=== PATIENT | female | born 1985 | race Caucasian/White ===

== ENCOUNTER 2019-02-03 23:32 | Inpatient (IN) | payer SELFPAY ==
[~2019-02-03] VITALS: Ht 170.2 cm; Wt 66.9 kg
[2019-02-03 23:41] VITALS: Ht 170.2 cm; Wt 66.9 kg
[2019-02-04] VITALS (7 sets, daily range): BP systolic 79–106; BP diastolic 43–62
--- NOTE | 2019-02-04 00:03 | NUR ---
PT BIB PARENTS WITH C/O "MY BODY FEELS NUMB." PT CRYING AND SPEAKING IN FULL SENTENCES. PT ADMITS TO METHAMPHETAMINE USE "YESTERDAY." PT STATED, "I WAS CLEAN FOR 7 MONTHS AND IM UNDER A LOT OF STRESS." PT ALSO C/O ONE INCIDENT OF CHEST PAIN "YESTERDAY". PT DENIES ANY CHEST PAIN AT THIS TIME. PT IS AAOX4, CRYING AND COOPERATIVE, SHALLOW AND EVEN RESPIRATIONS, SKIN INTACT, WARM AND DRY. PT GOWNED AND PLACED ON FULL CM, SINUS TACHYCARDIA, MSE COMPLETED BY DR RAY. PARENTS AT THE BEDSIDE. EKG COMPLETED. AWAITING FURTHER ORDERS.
[2019-02-04 00:45] LABS: CARBON DIOXIDE 15.2 mmol/L (21-32); CREATININE SERUM 1.2 mg/dL (0.6-1.0); POTASSIUM SERUM 3.5 mmol/L (3.5-5.1)
[2019-02-04 00:49] LABS: ALBUMIN 3.7 g/dL (3.4-5.0); BILIRUBIN TOTAL 0.5 mg/dL (0.20-1.00); TOTAL PROTEIN, SERUM 6.9 g/dL (6.4-8.2)
[2019-02-04 01:16] LABS: BASOPHIL % 0.5 % (0-2); PLATELET COUNT 193 x10^3mcL (130-400); RED CELL DISTRIBUTION WIDTH 14.1 % (11.5-14.5)
--- NOTE | 2019-02-04 01:22 | NUR ---
PT MEDICATED PER MD ORDER SEE EMAR. VITAL SIGNS STABLE. RESPIRATIONS EVEN AND UNLABORED. NO ACUTE DISTRESS NOTED.
--- NOTE | 2019-02-04 01:33 | NUR ---
REPORT GIVEN TO SUDHEER FOR CONTINUATION OF CARE.
--- NOTE | 2019-02-04 02:00 | NUR ---
RECEIVED PT FROM ED VIA [facility] BY NURSE. PT AAOX4. DENIES CORONADO/DIZZINESS. TELE #6 ST W/ ELEVATED T WAVE HR 115 PER MONITOR. PT DENIES CHEST PAIN/PRESSURE. BREATHING EVEN AND UNLABORED ON RA WITH NO SOB NOTED. ABD SOFT/ROUND ACTIVE BOWEL SOUNDS. DENIES ABD PAIN/N/V. IV LAC PATENT, SL. PER PT CC NUMBNESS AND TINGLING FINGERS AND DENIES CHEST PAIN. NO EDEMA PRESENT. SKIN WARM/DRY. NO SIGNS OF DISTRESS NOTED. FAMILY AT BEDSIDE. CALL BUTTON WITHIN REACH. SAFETY PRECAUTIONS IN PLACE. WILL CONTINUE TO MONITOR.
[2019-02-04 02:53] LABS: MAGNESIUM 1.4 mg/dL (1.8-2.4); PHOSPHOROUS 1.5 mg/dL (2.5-4.9)
[2019-02-04 03:09] LABS: FREE T4 1.52 ng/dL (0.76-1.46); FREE THYROXINE INDEX 3.7 ug/dL (1.4-4.5); T4(THYROXINE) 10.1 ug/dL (4.7-13.3)
[2019-02-04 03:25] LABS: T3 TOTAL 1.65 ng/mL
--- NOTE | 2019-02-04 04:12 | NUR ---
PT RESTLESS IN BED, PULLING OUT IV AND HEART MONITOR OFF. DR SAMANO MADE AWARE. ATIVAN GIVEN PER EMAR. CALL BUTTON WITHIN REACH. SAFETY PRECAUTIONS IN PLACE. WILL CONTINUE TO MONITOR.
--- NOTE | 2019-02-04 04:38 | NUR ---
PT RESTING. BREATHING EVEN AND UNLABORED. NO SIGNS OF DISTRESS. CALL BUTTON WITHIN REACH. SAFETY PRECAUTIONS IN PLACE. WILL CONTINUE TO MONITOR.
--- NOTE | 2019-02-04 05:08 | NUR ---
PT SLEPT ON AND OFF TRHOGUHOUT THE NIGHT. PT DENIES CHEST PAIN/PRESSURE. IV PATENT, INFUSING WELL. MEDICATED PER EMAR. CALL BUTTON WITHIN REACH. SAFETY PRECAUTIONS IN PLACE. WILL CONTINUE TO MONITOR AND ENDORSE CARE TO DAY SHIFT RN.
--- NOTE | 2019-02-04 06:42 | NUR ---
DR HAMM MADE AWARE PT MG 1.4 AND PHOS 1.5 NO NEW ORDERS AT THIS TIME.
--- NOTE | 2019-02-04 07:22 | NUR ---
PT RESTING. BREATHING EVEN AND UNLABORED WITH NO SIGNS OF DISTRESS. IV PATENT AND INFUSING WELL. NO SIGNS OF DISTRESS. CALL BUTTON WITHIN REACH. SAFETY PRECAUTIONS IN PLACE. ENDORSED CARE TO DAY SHIFT RN, ALL QUESTIONS ADDRESSED.
--- NOTE | 2019-02-04 08:06 | NUR ---
RECEIVED PATIENT FROM TATI RIVERA. PATIENT CURRENTLY SLEEPING IN BED, NO SIGNS OF DISTRESS OR SOB. WILL CONTINUE TO MONITOR UNTIL PATIENT AWAKE, AND WILL SEE WHAT CARE TEAM PLANS ARE FOR TODAY.
--- NOTE | 2019-02-04 11:03 | NUR ---
PATIENT NOW AWAKE, NO COMPLAINTS AT THIS TIME. AM PO MEDICATIONS ADMINISTERED, PATIENT MADE AWARE FOR URINE SPECIMEN. WILL CONTINUE TO MONITOR AND UPDATE PATIENT TO PLAN OF CARE, CARE TEAM MADE ROUNDS BUT PATIENT WAS ASLEEP. CALL LIGHT IN REACH AT THIS TIME.
--- NOTE | 2019-02-04 14:39 | NUR ---
Discount pharmacy card and list to low cost medical clinics given to patient by Juliocesar Robison.
--- NOTE | 2019-02-04 15:35 | NUR ---
PATIENT CURRENTLY SLEEPING. NO SIGNS OF DISTRESS, SOB. DR KATZ IN TO SPEAK WITH PATIENT AND UPDATE TO PLAN OF CARE. CALL LIGHT IN REACH.
--- NOTE | 2019-02-04 19:10 | NUR ---
RECEIVED PT LAYING IN BED, NO ACUTE DISTRESS OBSERVED, DENIES PAIN OR DISCOMFORT. AA/OX4, DROWSY, EASILY AROUSABLE TO VERBAL STIMULI, SPEECH CLEAR AND APPROPRIATE. ABLE TO MAKE NEEDS KNOWN. NSR WITH ELEVATED T WAVE TO TELE #6, DENIES CP OR PRESSURE, HR 69. PULSES PRESENT AND EQUAL THROUGHOUT, NO EDEMA. BREATHING ON RA, EVEN AND UNLABORED, NO SOB OR DYSPNEA OBSERVED. ABD ROUND AND SOFT WITH ACTIVE BOWEL SOUNDS, DENIES N/V/D. FREELY VOIDS URINE. AMBULATORY AND ABLE TO REPOSITION SELF IN BED. IV TO LFA IN PLACE, DRY, PATENT, INTACT, AND INFUSING IVF WELL, NO PAIN, REDNESS OR SWELLING NOTED. COMFORT AND SAFETY MEASURES IN PLACE. ALL NEEDS ASSESSED AND ATTENDED TO. CALL LIGHT WITHIN REACH. WILL CONTINUE TO MONITOR
--- NOTE | 2019-02-04 19:37 | NUR ---
REPORT GIVEN TO TATI MARTIN. PATIENT IN BED AT THIS TIME, DENIES CORONADO OR DIZZINESS OR TINGLING AT EXTREMITIES. DR CORRALES MADE AWARE OF HYPOTENSION AND 500ML BOLUS ADMINISTERED. RECHECK ON BP CONTINUES TO BE HYPOTENSIVE. TATI MARTIN MADE AWARE. PATIENT APPEARS PINK, DRY, WARM, NO SIGNS OF DIAPHORESIS. CALL LIGHT IN REACH AT THIS TIME.
[2019-02-04 23:43] LABS: UA SPECIFIC GRAVITY >=1.030 (1.005-1.035); microscopic required? YES; urine erythrocyte NEGATIVE (NEGATIVE)
[2019-02-04 23:57] LABS: AMPHETAMINE QUAL UR POSITIVE (See below)
--- NOTE | 2019-02-05 01:00 | NUR ---
NO ACUTE DISTRESS OBSERVED AT THIS TIME, PT LAYING IN BED, BREATHING EVEN AND UNLABORED. COMFORT AND SAFETY MEASURES IN PLACE. CALL LIGHT WITHIN REACH. WILL CONTINUE TO MONITOR
[2019-02-05 05:38] VITALS: BP 85/50
[2019-02-05 05:45] VITALS: BP 93/54
--- NOTE | 2019-02-05 06:04 | NUR ---
NO SIGNIFICANT CHANGES TO REPORT, PT COMPLIED WITH NURSING CARE THROUGHOUT THE SHIFT WITH NO ACUTE EVENTS OVERNIGHT. NO ACUTE DISTRESS OBSEREVED AT THIS TIME, PT LAYING IN BED, BREATHING EVEN AND UNLABORED, AROUSABLE TO VERBAL STIMULI. COMFORT AND SAFETY MEASURES MAINTAINED. ALL NEEDS ASSESSED AND ATTENDED TO. CALL LIGHT WITHIN REACH. WILL CONTINUE TO MONITOR AND ENDORSE CARE TO DAY SHIFT NURSE
[2019-02-05 06:27] LABS: BASOPHIL % 0.6 % (0-2); PLATELET COUNT 142 x10^3mcL (130-400); RED CELL DISTRIBUTION WIDTH 14.2 % (11.5-14.5)
[2019-02-05 06:34] LABS: CALCIUM 6.8 mg/dL (8.5-10.1); CREATININE SERUM 0.5 mg/dL (0.6-1.0); GFR1 > 60 mL/min; GLUCOSE SERUM 78 mg/dL (74-106); MAGNESIUM 1.9 mg/dL (1.8-2.4); PHOSPHOROUS 2.6 mg/dL (2.5-4.9)
[2019-02-05 06:52] LABS: CHLORIDE SERUM 113 mmol/L (98-107); POTASSIUM SERUM 3.8 mmol/L (3.5-5.1); SODIUM SERUM 144 mmol/L (136-145)
--- NOTE | 2019-02-05 07:00 | NUR ---
RECEIVED BEDSIDE REPORT FROM [employer] NURSE AT THIS TIME. PATIENT RESTING COMFORTABLY IN BED. NO APPARENT DISTRESS OR DISCOMFORT NOTED. BREATHING EVEN AND UNLABORED. NO RESPIRATORY DISTRESS OR DISCOMFORT. PATIENT DENIES CHEST PAIN/PRESSURE AT THIS TIME. IV PATENT AND INTACT. ALL QUESTIONS AND CONCERNS ADDRESSED. ALL NEEDS ATTENDED TO. WILL CONTINUE TO MONITOR
[2019-02-05 09:22] VITALS: BP 88/44
--- NOTE | 2019-02-05 09:53 | NUR ---
MORNING MEDICATION ADMINISTERED. PATIENT TOLERATED WELL. NO ADVERSE EFFECTS NOTED. ALL NEEDS ATTENDED TO. WILL CONTINUE TO MONITOR
--- NOTE | 2019-02-05 12:45 | NUR ---
PATIENT SITTING UP IN BED EATING LUNCH AT THIS TIME. PATIENT TOLERATING DIET WELL. NO APPARENT DISTRESS OR DISCOMFORT NOTED. ALL NEEDS ATTENDED TO. WILL CONTINUE TO MONITOR
[2019-02-05 13:45] VITALS: BP 94/36
[2019-02-05 17:06] VITALS: BP 93/47
--- NOTE | 2019-02-05 17:40 | NUR ---
PATIENT STABLE TO BE DISCHARGED TO HOME. DISCHARGE INSTRUCTIONS GIVEN WELL EDUCATION. INSTRUCTED PATIENT ABOUT FOLLOW UP APPOINTMENT. PATIENT VERBALIZES UNDERSTANDING. IV REMOVED WITH CATH INTACT. ID BANDS REMOVED. TELE MONITOR REMOVED AND RETURNED TO [employer]ANER. ALL BELONGINGS WITH PATIENT. ALL QUESTIONS AND CONCERNS ADDRESSED. ALL NEEDS ATTENDED TO. AWAITING TRANSPORTATION AT THIS TIME. WILL ESCORT PATIENT DOWN TO LOBBY WHEN TRANSPORTATION ARRIVES
== END 2019-02-05 18:10 | disposition home or self-care (01) | DRG 683 ==
LOC: ED 23:32 → DU 02-04 01:23
PROVIDERS: Emergency Medicine; General Practice; ADMIT Internal Medicine
DX: N17.9 Acute kidney failure, unspecified (principal); I47.1 Supraventricular tachycardia; E86.0 Dehydration; F15.10 Other stimulant abuse, uncomplicated; Z79.82 Long term (current) use of aspirin; Z68.30 Body mass index [BMI] 30.0-30.9, adult; Z86.718 Personal history of other venous thrombosis and embolism
CPT/HCPCS: 83880; 84439; G0378; J1650; J1885; J2060; J2405; J7030; Q0092